=== PATIENT | female | born 1995 | race Caucasian/White ===

== ENCOUNTER 2023-06-03 08:00 | Outpatient (CLI) | payer OTHER ==
[2023-06-03 16:26] LABS: BILIRUBIN,URINE NEGATIVE (NEGATIVE); GLUCOSE, URINE (UA) NEGATIVE (NEGATIVE); KETONES,URINE (UA) NEGATIVE (NEGATIVE); LEUKOCYTE ESTERASE, URINE NEGATIVE (NEGATIVE); NITRITE,URINE NEGATIVE (NEGATIVE); OCCULT BLOOD,URINE NEGATIVE (NEGATIVE); PROTEIN,URINE NEGATIVE (NEGATIVE); UROBILINOGEN,URINE 0.2 (NORMAL) E.U./dL (NORMAL)
[2023-06-03 16:31] LABS: CLARITY,URINE CLOUDY (CLEAR)
[2023-06-03 17:41] LABS: RBC,URINE None Seen /HPF (0-5); WBC,URINE 0-3 /HPF (0-5)
[2023-06-03 17:42] LABS: AMORPHOUS SEDIMENT,UR Marked /LPF; BACTERIA,URINE Moderate /HPF (None Seen); SQUAMOUS EPITHELIAL CELL,UR MOD Squamous (<= Few)
== END 2023-06-03 23:56 | disposition home or self-care (01) ==
LOC: LAB.WC 08:00
PROVIDERS: ATTEND Obstetrics & Gynecology
DX: Z34.90 Encounter for supervision of normal pregnancy, unspecified, unspecified trimester (principal)
CPT/HCPCS: 81001; 87086

== ENCOUNTER 2023-06-13 13:35 | Outpatient (CLI) | payer OTHER ==
[2023-06-13 14:01] LABS: BASOPHILS % (AUTO) 0.5 %; EOSINOPHILS # (AUTO) 0.1 10^3/uL (0.0-0.7); EOSINOPHILS % (AUTO) 0.8 %; HCT - HEMATOCRIT 36.5 % (37.0-47.0); HGB - HEMOGLOBIN 12.4 g/dL (12.0-16.0); LYMPHOCYTES # (AUTO) 2.2 10^3/uL (1.5-3.5); LYMPHOCYTES % (AUTO) 34.6 %; MEAN CORPUSCULAR HEMOGLOBIN 30.4 pg (27.0-31.0); MEAN CORPUSCULAR VOLUME 89.5 fL (81.0-99.0); MEAN PLATELET VOLUME 10.1 fL (7.9-10.8); MONOCYTES # (AUTO) 0.4 10^3/uL (0.0-1.0); NEUTROPHILS # (AUTO) 3.7 10^3/uL (1.5-6.6); NEUTROPHILS % (AUTO) 57.8 %; PLT - PLATELET COUNT 258 10^3/uL (130-450); RED BLOOD COUNT 4.08 10^6/uL (4.20-5.40); RED CELL DISTRIBUTION WIDTH 12.8 % (12.0-15.0); WHITE BLOOD COUNT 6.4 x10^3/uL (4.8-10.8)
[2023-06-14 07:09] LABS: HCV AB Non Reactive (Non Reactive)
[2023-06-14 08:09] LABS: HBsAG SCREEN Negative (Negative); RPR Non Reactive (Non Reactive)
[2023-06-14 09:09] LABS: HIV SCREEN 4TH GENERATION Non Reactive (Non Reactive); VARICELLA-ZOSTER AB IGG <135 index (Immune >165)
== END 2023-06-13 13:36 | disposition home or self-care (01) ==
LOC: LAB 13:35
PROVIDERS: ATTEND Obstetrics & Gynecology
DX: Z34.90 Encounter for supervision of normal pregnancy, unspecified, unspecified trimester (principal)
CPT/HCPCS: 36415; 85025; 86592; 86762; 86787; 86803; 86850; 86900; 86901; 87340; 87389

== ENCOUNTER 2023-06-20 07:42 | Outpatient (CLI) | payer OTHER ==
--- NOTE | 2023-06-20 17:58 | Ultrasound Report ---
PROCEDURE: OB First Trimester INDICATIONS: POSITIVE TEST OUTSIDE/PRIOR DATING DATA: Last menstrual period (LMP): 03/18/2023. LMP-based estimated date of delivery (CHAVEZ): 12/23/2023. First dating scan (date and location): 06/20/2023. Estimated date of delivery (CHAVEZ) from first dating scan: 12/26/2023. TECHNIQUE: Real-time scanning was performed of the fetus and maternal pelvic organs, with image documentation. COMPARISON: None. FINDINGS: Intrauterine gestational sac present. Embryo: Single live intrauterine is identified with crown-rump length measuring 6.6 cm cor responding to 13 weeks 0 days Heart rate: 150 bpm. Other: No perigestational fluid collection. Measurement variability in dating: +/- 4 weeks by LMP, +/- 7 days by mean sac diameter (use before 6 weeks gestation if crown-rump length not able to be measured), +/- 5 days by crown-rump length (6-12 weeks gestation). Maternal organs: There is appearance of right hydrosalpinx. Focus of decreased echogenicity is presen t within the left ovary measuring 2.5 x 1.8 x 2.6 cm. This could represent a left-sided hydrosalpinx versus cyst. IMPRESSION: Single intraoperative gestational age 30 weeks 0 days. Recommend follow-up imaging for dates and anatomy at 20-22 weeks. Right-sided and potential left-sided hydrosalpinx. Further evaluation with short-term ultrasound foll ow-up is recommended. Reviewed by: Rubi Brown MD on 06/20/2023 5:56 PM PST Approved by: Rubi Brown MD on 06/20/2023 5:56 PM PST Station ID: [id number]
== END 2023-06-20 07:43 | disposition home or self-care (01) ==
LOC: DI 07:42
PROVIDERS: ATTEND Obstetrics & Gynecology
DX: O23.521 Salpingo-oophoritis in pregnancy, first trimester (principal); Z3A.13 13 weeks gestation of pregnancy

== ENCOUNTER 2023-07-04 15:38 | Outpatient (CLI) | payer OTHER | END 2023-07-04 15:39 | disposition home or self-care (01) | LOC: LAB 15:38 | PROVIDERS: ATTEND Nurse Practitioner | DX: Z36.0 Encounter for antenatal screening for chromosomal anomalies (principal) ==

== ENCOUNTER 2023-07-17 14:03 | Outpatient (CLI) | payer OTHER ==
[2023-07-19 21:16] LABS: AFP MOM 1.26 (.); AFP VALUE 54.2 ng/mL (.); GEST. AGE ON COLLECTION DATE 17.3 weeks (.); INSULIN DEP DIABETES No (.); MATERNAL AGE AT EDD 29.7 yr (.); MULTIPLE GESTATION No (.); OPEN SPINA BIFIDA RISK 1 IN 5411 (.); RACE Caucasian (.); RESULTS Report (.); TEST RESULTS *Screen Negative* (.); WEIGHT 135 lbs (.)
== END 2023-07-17 14:04 | disposition home or self-care (01) ==
LOC: LAB 14:03
PROVIDERS: ATTEND Obstetrics & Gynecology
DX: Z36.0 Encounter for antenatal screening for chromosomal anomalies (principal)
CPT/HCPCS: 36415; 82105

== ENCOUNTER 2023-08-11 12:39 | Outpatient (CLI) | payer OTHER ==
--- NOTE | 2023-08-11 16:30 | Ultrasound Report ---
PROCEDURE: OB 14+ Weeks INDICATIONS: SUPERVISION OF OUTSIDE/PRIOR DATING DATA: Last menstrual period (LMP): 03/18/2023. LMP-based estimated date of delivery (CHAVEZ): 12/23/2023. First dating scan (date and location): 06/20/2023. Estimated date of delivery (CHAVEZ) from first dating scan: 12/26/2023. The below data below was generated using the ultrasound CHAVEZ of 12/26/2023 TECHNIQUE: Real-time scanning was performed of the fetus, with image documentation and biometric measurements. Endovaginal scanning: Not performed. COMPARISON: 07/02/2023 FINDINGS: General: A single living intrauterine gestation is present. Presentation: Breech Placenta: Placental position is anterior, without previa. Amniotic fluid index: 13.7 cm, deepest pocket is 4.1 cm, normal for gestational age. heart rate: 158 beats per minute. Maternal cervical canal: Closed and 4.8 cm long; normal length is 2.5 cm or more. biometrics: Biparietal diameter: 5.0 cm, 21 weeks 0 days, 57th percentile Head circumference: 18.1 cm, 20 weeks 4 days, 26th percentile Abdominal circumference: 15.2 cm, 20 weeks 3 days, 28th percentile Femur length: 3.3 cm, 20 weeks 2 days, 21st percentile Estimated gestational age from initial scan: 20 weeks 6 days Composite gestational age from present scan: 20 weeks 4 days Estimated weight and percentile: 349 g, 21st percentile Measurement variability for biometric dating: +/- 10 days from 12-20 weeks gestation, +/- 2 weeks fro m 20-30 weeks gestation, +/- 3 weeks for 30 weeks gestation or later. Anatomic survey: Neuro: Ventricles are non-dilated at less than 10 mm. Cisterna magna is normal at 3-11 mm. Cerebel lum is normal in size and morphology. Nuchal skin fold: Normal at less than 6 mm between 14-20 weeks gestational age. Face: Facial features were not well seen. Spine: No evidence for spina bifida. Heart: 4-chambered heart is present. The outflow tracts were not well seen due to position. Diaphragm: Diaphragm is intact. Stomach: Left-sided stomach is present. Kidneys: No hydronephrosis. Normal is less than 5 mm in 2nd trimester, less than 7 mm in 3rd trimester. Cord: 3-vessel cord has orthotopic insertion. Bladder: Normal in size. Extremities: Extremities were not evaluated. There is a hyperechoic mass within the left ovary, presumably a dermoid. The right adnexa displays an avascular tubular cystic structure without internal echoes adjacent to the ovaries suggestive of a h ydrosalpinx. This was seen previously. IMPRESSION: 1. Living intrauterine with growth as expected. Estimated weight at the 21st percenti le. 2. There is partial completion of anatomic survey. Facial features, cardiac outflow tracts, and extre mities were not well seen. Recommend short-term follow-up. 3. Right hydrosalpinx again noted. 4. 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 Reviewed by: Loyda Jarvis MD on 08/11/2023 4:29 PM PST Approved by: Loyda Jarvis MD on 08/11/2023 4:29 PM PST Station ID: [id number]
== END 2023-08-11 12:40 | disposition home or self-care (01) ==
LOC: DI 12:39
PROVIDERS: ATTEND Obstetrics & Gynecology
DX: O23.52 Salpingo-oophoritis in pregnancy (principal); Z3A.20 20 weeks gestation of pregnancy

== ENCOUNTER 2023-08-27 15:02 | Outpatient (CLI) | payer OTHER ==
--- NOTE | 2023-08-27 17:01 | Ultrasound Report ---
PROCEDURE: OB Follow up INDICATIONS: SUPERVISON OF OUTSIDE/PRIOR DATING DATA: Last menstrual period (LMP): 03/18/2023. LMP-based estimated date of delivery (CHAVEZ): 12/23/2023. First dating scan (date and location): 06/20/2023. Estimated date of delivery (CHAVEZ) from first dating scan: 12/26/2023. The below data below was generated using the ultrasound CHAVEZ of 12/26/2023 TECHNIQUE: Real-time scanning was performed of the fetus, with image documentation. Endovaginal scanning: Not performed. COMPARISON: OB ultrasound 08/11/2023 FINDINGS: General: A single living intrauterine gestation is present. Presentation: Vertex Placenta: Placental position is anterior, without previa. Amniotic fluid index: 10.7 cm, within normal limits for gestational age. heart rate: 164 beats per minute. Maternal cervical canal: 3.7 cm long; normal length is 2.5 cm or more. Estimated gestational age from initial scan: 22 weeks 5 days Other: Normal appearance of the nose and lips, right and left ventricular outflow tracts, and extremities. Right renal pelvis measures 5.5 mm in anterior-posterior dimension. Left renal pelvis is within normal limits. Maternal left ovary not visualized. Tubular anechoic cystic structure again se en on the maternal right adnexa. IMPRESSION: 1.Single live intrauterine . 2. right renal pelviectasis. Recommend third trimester follow-up ultrasound. 3.Otherwise normal completion anatomic survey. 4.Stable maternal right hydrosalpinx. Left ovary not visualized. Reviewed by: Chalo Shah MD on 08/27/2023 4:59 PM PST Approved by: Chalo Shah MD on 08/27/2023 4:59 PM PST Station ID: [id number]
== END 2023-08-27 15:03 | disposition home or self-care (01) ==
LOC: DI 15:02
PROVIDERS: ATTEND Obstetrics & Gynecology
DX: O35.EXX0 Maternal care for other (suspected) fetal abnormality and damage, fetal genitourinary anomalies, not applicable or unspecified (principal); Z3A.22 22 weeks gestation of pregnancy

== ENCOUNTER 2023-09-15 11:19 | Outpatient (CLI) | payer OTHER ==
[2023-09-15 12:44] LABS: HCT - HEMATOCRIT 33.6 % (37.0-47.0); HGB - HEMOGLOBIN 11.6 g/dL (12.0-16.0); MEAN CORPUSCULAR HEMOGLOBIN 31.3 pg (27.0-31.0); MEAN CORPUSCULAR HGB CONC 34.5 g/dL (32.0-36.0); MEAN CORPUSCULAR VOLUME 90.6 fL (81.0-99.0); MEAN PLATELET VOLUME 10.1 fL (7.9-10.8); RED BLOOD COUNT 3.71 10^6/uL (4.20-5.40); RED CELL DISTRIBUTION WIDTH 12.6 % (12.0-15.0); WHITE BLOOD COUNT 8.4 x10^3/uL (4.8-10.8)
== END 2023-09-15 11:20 | disposition home or self-care (01) ==
LOC: LAB 11:19
PROVIDERS: ATTEND Nurse Practitioner Obstetrics & Gynecology
DX: Z36.9 Encounter for antenatal screening, unspecified (principal)
CPT/HCPCS: 36415; 82950; 85027

== ENCOUNTER 2023-11-06 15:57 | Outpatient (CLI) | payer OTHER ==
--- NOTE | 2023-11-06 17:19 | Ultrasound Report ---
PROCEDURE: OB Follow up INDICATIONS: PELVIECTASIS OUTSIDE/PRIOR DATING DATA: Last menstrual period (LMP): 03/18/2023. LMP-based estimated date of delivery (CHAVEZ): 12/23/2023. First dating scan (date and location): 06/20/2023, Dr. Sexton. Estimated date of delivery (CHAVEZ) from first dating scan: 06/20/2023. TECHNIQUE: Real-time scanning was performed of the fetus, with image documentation and biometric measurements. Endovaginal scanning: Not performed. COMPARISON: OB ultrasound dated 08/27/2023, 08/11/2023 FINDINGS: General: A single living intrauterine gestation is present. Presentation: Cephalic Placenta: Placental position is anterior, without previa. Amniotic fluid index: 12.8 cm, within normal limits for gestational age. heart rate: 150 beats per minute. Maternal cervical canal: 4.3 cm long; normal length is 2.5 cm or more. Estimated gestational age from initial scan: 33 weeks, 2 days Composite gestational age from present scan: Estimated weight and percentile: Measurement variability in biometric dating: +/- 10 days from 12-20 weeks gestation, +/- 2 weeks from 20-30 weeks gestation, +/- 3 weeks at 30 weeks gestation or more. Other: An echogenic mass is redemonstrated in the left ovary suggesting the presence of an ovarian de rmoid which measures 1.6 x 1.8 x 1.9 cm. The right renal pelvis measures 8 mm in diameter. IMPRESSION: 1. ALISA within normal limits. 2. Right pelviectasis. Continued sonographic surveillance recommended. Reviewed by: Batool Johnson MD on 11/06/2023 5:18 PM PDT Approved by: Batool Johnson MD on 11/06/2023 5:18 PM PDT Station ID: [id number]
== END 2023-11-06 15:58 | disposition home or self-care (01) ==
LOC: DI 15:57
PROVIDERS: ATTEND Nurse Practitioner Obstetrics & Gynecology
DX: O35.8XX0 Maternal care for other (suspected) fetal abnormality and damage, not applicable or unspecified (principal); Z3A.00 Weeks of gestation of pregnancy not specified

== ENCOUNTER 2023-12-21 05:05 | Inpatient (IN) | payer OTHER ==
[2023-12-21] MEDS ORDERED: OXYTOCIN 10 UNIT/ML VIAL IM PRN (05:19)
[2023-12-21] MEDS ORDERED: CARBOPROST TROMETHAMINE 250 MCG/ML VIAL IM PRN (05:19)
[2023-12-21] MEDS ORDERED: fentaNYL 100 MCG/2 ML VIAL IVP PRN (05:19)
[2023-12-21] MEDS ORDERED: miSOPROStoL 200 MCG TABLET PR PRN (05:19)
[2023-12-21] MEDS ORDERED: miSOPROStoL 200 MCG TABLET BC PRN (05:19)
[2023-12-21] MEDS ORDERED: hydrALAZINE INJ 20 MG/ML VIAL IVP PRN ×2 (05:19)
[2023-12-21] MEDS ORDERED: LACTATED RINGERS 1,000 ML IV PRN (05:19)
[2023-12-21] MEDS ORDERED: TERBUTALINE 1 MG/ML VIAL SUBQ PRN (05:19)
[2023-12-21] MEDS ORDERED: METHYLERGONOVINE 0.2 MG/ML VIAL IM PRN (05:19)
[2023-12-21] MEDS ORDERED: lidocaine 1% 20 ML MDV ID PRN (05:19)
[2023-12-21] MEDS ORDERED: SODIUM CHLORIDE FLUSH 0.9% 10 ML SYRINGE IVP PRN (05:19)
[2023-12-21] MEDS ORDERED: NIFEdipine 10 MG CAPSULE PO PRN (05:19)
[2023-12-21] MEDS ORDERED: TRANEXAMIC ACID IN NACL 1,000 MG/100 ML BAG IV PRN (05:19)
[2023-12-21] MEDS ORDERED: LABETALOL 20 MG/4 ML SYRINGE IVP PRN ×3 (05:19)
[2023-12-21 05:40] LABS: BASOPHILS % (AUTO) 0.3 %; EOSINOPHILS % (AUTO) 0.1 %; HCT - HEMATOCRIT 35.6 % (37.0-47.0); HGB - HEMOGLOBIN 11.5 g/dL (12.0-16.0); LYMPHOCYTES # (AUTO) 1.6 10^3/uL (1.5-3.5); LYMPHOCYTES % (AUTO) 13.5 %; MEAN CORPUSCULAR HEMOGLOBIN 27.7 pg (27.0-31.0); MEAN CORPUSCULAR HGB CONC 32.3 g/dL (32.0-36.0); MEAN CORPUSCULAR VOLUME 85.8 fL (81.0-99.0); MEAN PLATELET VOLUME 11.9 fL (7.9-10.8); MONOCYTES # (AUTO) 0.4 10^3/uL (0.0-1.0); NEUTROPHILS # (AUTO) 9.9 10^3/uL (1.5-6.6); NEUTROPHILS % (AUTO) 82.6 %; PLT - PLATELET COUNT 289 10^3/uL (130-450); RED BLOOD COUNT 4.15 10^6/uL (4.20-5.40); RED CELL DISTRIBUTION WIDTH 13.2 % (12.0-15.0)
[2023-12-21] MEDS: LACTATED RINGERS 1,000 ML IV SCH (05:42)
[2023-12-21] MEDS ORDERED: SODIUM CHLORIDE FLUSH 0.9% 10 ML SYRINGE IVP SCH (06:00)
[2023-12-21] MEDS ORDERED: fentaNYL 100 MCG/2 ML VIAL ONE (06:20)
[2023-12-21] MEDS ORDERED: BUPIVACAINE 0.25% PF 10 ML VIAL ONE (06:21)
[2023-12-21] MEDS ORDERED: fentaNYL 100 MCG/2 ML VIAL IT ONE (06:30)
--- NOTE | 2023-12-21 06:51 | ANESTHESIA ---
Pre-Anesthesia VS, & Labs - Diagnosis Active labor, 10cm dilated - Procedure vaginal delivery - NPO Other (labor) - Is Patient ?: Yes - Lab Results Current Lab Results: Laboratory Tests 12/21/23 05:28: WBC 12.0 H, RBC 4.15 L, Hgb 11.5 L, Hct 35.6 L, MCV 85.8, MCH 27.7, MCHC 32.3, RDW 13.2, Plt Count 289, MPV 11.9 H, Neut # (Auto) 9.9 H, Lymph # (Auto) 1.6, Rich # (Auto) 0.4, Eos # (Auto) 0.0, Baso # (Auto) 0.0, Absolute Nucleated RBC 0.00, Nucleated RBC % 0.0 Lab results reviewed: Yes Fish Bones: 12/21/23 05:28 Home Medications and Allergies Active Medications Carboprost Tromethamine (Carboprost Tromethamine 250 Mcg/Ml Vial) 250 mcg IM .ONCE PRN PRN Reason: Hemorrhage Fentanyl (Fentanyl 100 Mcg/2 Ml Vial) 50 mcg IVP Q1H PRN PRN Reason: Severe Pain (score 7-10) Hydralazine HCl (Hydralazine Inj 20 Mg/Ml Vial) 5 - 10 mg IVP Q20M PRN; Protocol PRN Reason: SBP> or= 160 OR DBP> or= 110 Hydralazine HCl (Hydralazine Inj 20 Mg/Ml Vial) 10 mg IVP .ONCE PRN; Protocol PRN Reason: SBP> or= 160 OR DBP> or= 110 Lactated Ringer's (Lr) 500 mls @ 999 mls/hr IV PRN PRN PRN Reason: Anesthesia Oxytocin/Sodium Chloride (Pitocin/Sodium Chloride) 500 mls @ 999 mls/hr IV PRN PRN; Protocol PRN Reason: POST- HEMORR PREVENTION Last Admin: 12/21/23 06:12 Dose: 999 milliunit/min, 999 mls/hr Tranexamic Acid (Tranexamic 1,000 Mg/100ml-Nacl) 1,000 mg in 100 mls @ 600 mls/hr IV Q30M PRN PRN Reason: EBL >1200mL and within 3hr Lactated Ringer's (Lr) 1,000 mls @ 125 mls/hr IV .Q8H [place] Last Admin: 12/21/23 05:42 Dose: 125 mls/hr Labetalol HCl (Labetalol 20 Mg/4 Ml Syringe) 20 - 80 mg IVP Q10M PRN; Protocol PRN Reason: SBP> or= 160 OR DBP> or= 110 Labetalol HCl (Labetalol 20 Mg/4 Ml Syringe) 20 mg IVP .ONCE PRN; Protocol PRN Reason: SBP> or= 160 OR DBP> or= 110 Labetalol HCl (Labetalol 20 Mg/4 Ml Syringe) 20 - 40 mg IVP Q10M PRN; Protocol PRN Reason: SBP> or= 160 OR DBP> or= 110 Lidocaine HCl (Lidocaine 1% 20 Ml Mdv) 20 ml ID .ONCE PRN PRN Reason: PERINEAL REPAIR Stop: 12/24/23 05:19 Methylergonovine Maleate (Methylergonovine 0.2 Mg/Ml Vial) 0.2 mg IM .ONCE PRN PRN Reason: Hemorrhage Misoprostol (Misoprostol 200 Mcg Tablet) 600 mcg BC .ONCE PRN PRN Reason: Hemorrhage Misoprostol (Misoprostol 200 Mcg Tablet) 800 mcg [place] .ONCE PRN PRN Reason: Hemorrhage Nifedipine (Nifedipine 10 Mg Capsule) 10 - 20 mg PO Q20M PRN; Protocol PRN Reason: SBP> or= 160 OR DBP> or= 110 Oxytocin (Oxytocin 10 Unit/Ml Vial) 10 unit IM .ONCE PRN PRN Reason: Step One if no IV access. Sodium Chloride (Sodium Chloride Flush 0.9% 10 Ml Syringe) 10 ml IVP PRN PRN PRN Reason: NEEDED PER PROVIDER ORDERS Sodium Chloride (Sodium Chloride Flush 0.9% 10 Ml Syringe) 10 ml IVP Q8H [facility] Terbutaline Sulfate (Terbutaline 1 Mg/Ml Vial) 0.25 mg SUBQ .ONCE PRN PRN Reason: Tachystole Allergies/Adverse Reactions: Allergies Allergy/AdvReac Type Severity Reaction Status Date / Time No Known Drug Allergies Allergy Verified 12/21/23 06:50 Anes History & Medical History - Medical History Cardiovascular: reports: None Pulmonary: reports: None Gastrointestinal: reports: None Urinary: reports: None Neuro: reports: None Musculoskeletal: reports: None Endocrine/Autoimmune: reports: None Blood Disorders: reports: None Skin: reports: None Psychosocial: reports: No issues indicated History of Cancer?: No Exam General: Alert, Oriented x3, Cooperative, Severe distress (10/10 pain) Dental: WNL Mouth Openin Fingerbreadth Neck Mobility: Normal Mallampati classification: II Thyromental Distance: 4-6 cm Mental/Cognitive Status: Alert/Oriented X3, Normal for patient Plan Anesthesia Type: Spinal (patient is 10cm dilated and pushing. Will place spinal for quick relief.) Consent for Procedure(s) Verified and Reviewed: Yes Code Status: Attempt Resuscitation ASA classification: 2-Mild systemic disease Is this case an emergency?: No
[2023-12-21] MEDS ORDERED: NALBUPHINE 10 MG/ML AMP IVP PRN (06:52)
[2023-12-21] MEDS ORDERED: ONDANSETRON 4 MG/2 ML VIAL IVP PRN (06:52)
[2023-12-21] MEDS ORDERED: ePHEDrine 50 MG/ML VIAL IVP PRN (06:52)
[2023-12-21] MEDS ORDERED: NALOXONE 0.4 MG/ML VIAL IVP PRN (06:52)
[2023-12-21] MEDS: OXYTOCIN/SODIUM CHLORIDE 500 ML IV PRN (07:20)
[2023-12-21] MEDS ORDERED: HYDROCORTISONE 1% CREAM 28 GM TUBE PR PRN (08:01)
[2023-12-21] MEDS ORDERED: WITCH HAZEL/GLYCERIN 1 PAD TOP PRN (08:01)
--- NOTE | 2023-12-21 08:01 | DELIVERY NOTE ---
Delivery Note - Labor Labor: positive: Spontaneous - Delivery Method Delivery Method: positive: Spontaneous vaginal delivery - Presentation Presentation: positive: Vertex, MARY ANN - left occiput anterior - Nuchal Cord Nuchal Cord: positive: Present, Reduced - Anesthetic Anesthetic Type: - Amniotic Fluid Description Amniotic Fluid Description: positive: Moderate meconium - Laceration Laceration: positive: 1st degree, 2nd degree, Perineal, Vaginal - Suture Suture Size: positive: 3-0 - Delivery Outcome Delivery Outcome: positive: Livebirth - [place] : positive: Placed in direct skin contact with mother, Suctioned, Bulb syringe, Warmed, [place] used [place] sex: positive: Female - Cord Cord: positive: 3 vessels - Placenta Placenta: positive: Intact - Estimated Blood Loss Estimated Blood Loss (in cc): 200
--- NOTE | 2023-12-21 08:36 | DELIVERY NOTE ---
Delivery Note - Labor Labor: positive: Spontaneous - Delivery Method Delivery Method: positive: Spontaneous vaginal delivery - Presentation Presentation: positive: MARY ANN - left occiput anterior - Nuchal Cord Nuchal Cord: positive: Present, Reduced - Anesthetic Anesthetic Type: - Amniotic Fluid Description Amniotic Fluid Description: positive: Moderate meconium - Episiotomy Type Episiotomy Type: positive: None - Laceration Laceration: positive: 1st degree, 2nd degree, Perineal, Vaginal - Suture Suture Type: positive: Vicryl Suture Size: positive: 3-0 - Delivery Outcome Delivery Outcome: positive: Livebirth - : positive: Placed in direct skin contact with mother, Bulb syringe, Stimulated, Warmed, [place] used [place] sex: positive: Female - Cord Cord: positive: 3 vessels - Placenta Placenta: positive: Intact, Spontaneous - Estimated Blood Loss Estimated Blood Loss (in cc): 200 - Post Delivery Events Post Delivery Events: positive: No post delivery events - Delivery Comments (Free Text/Narrative) Delivery Comments (Free Text/Narrative): This 28-year-old, G 1P 0 . @ 39+5 weeks gestation by 13 week ultrasound and sure LMP presented @ 0500 time in active labor in good condition. Cervix was 7cm/intact and Vertex presentation by exam. GBS negative. FHR pattern demonstrated 140 baseline in a category I prior to second stage. Progressed rapidly. Normal labor course. Spinal placed upon maternal request. SROM occurred @ 0540. She then progressed to complete/complete @ 0600and ready to deliver. 0600. : Normal spontaneous vaginal delivery of a viable female (YAMILA) on 12/21/2023 @ 0714 . Nuchal x1, reduced. The was placed on maternal abdomen, stimulated, dried and placed skin to skin. Apgars 8 @ 1 min, and 9 @ 5 minutes. Pitocin administered via IV for hemostasis. The umbilical cord was allowed to stop pulsating at which time it was doubly clamped by delivering provider and cut by FOB. 3VC. Cord blood was obtained. Fundal massage and gently cord traction applied for active management of the third stage, placenta delivered spontaneously and intact @ 0722time. EBL 200. Placenta was WAS NOT sent to pathology. Thirty units of Pitocin were added to the IV fluid and allowed to run freely. Uterine massage was performed until uterus was deemed firm. Inspection of the perineum noted a Second degree perineal laceration and first- degree right vaginal sidewall. This was repaired with a running suture of 3-0 Vicryl, rapide. Upon re-inspection the patient was hemostatic. Uterus again massaged and found to be firm. Needle and sponge counts were correct. Fourth stage: Uterine fundus firm and there is no excessive bleeding. The lacerations were was repaired under the effective spinal anesthesia. local anesthesia and repaired in standards fashion under sterile conditions. Vaginal and rectal examination following the repair was done. Tissues well approximated. /skin to skin contact initiated. Family bonding well. Both mother and baby are in stable condition.
--- NOTE | 2023-12-21 09:10 | HISTORY & PHYSICAL EXAMINATION ---
Admit History - Visit Reason Visit Reason: Contractions, Bloody show - : 1 Parity: 0 Risk/History: positive: None Complications This : positive: None Smoking Status: Never smoker - Mother's Labs Mother's Blood Type: positive: O Mother's RH: positive: Positive GBS: positive: Group B Step Negative Rubella Status: positive: Non-immune - Other Maternal History Other Maternal History: HPI: This 28 yo G1POP 39+5 weeks by sure LMP and confirmed by 13 week ultrasound. She had been luiza since last evening. Intermittent rest but no significant sleep. Contractions continued to stronger and closer together. Upon arrival her cervix was 7cm and intact, and vertex with intact membranes. She spontaneously ruptured her bag of dobson. Upon arrival of CN and [employer] [facility] student, she was complete and ready to push. She started her are with [facility] and transferred to [facility] for the duration of her . Her has remained uncomplicated. No Headaches, visual changes or right upper quadrant abdominal pain. Denies nausea and vomiting. Denies urinary urgency or dysuria. She is well supported by her partner throughout labor. ROS: All other symptoms reviewed and were negative except per HPI. 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 SAB x 0. Last pap 05/2023-WNL, abnormal pap in 2016 that reverted to normal. Denies history of gonorrhea, chlamydia, genital herpes, oral herpes or any other STI. Sexual partner does NOT have HSV (oral or genital). Medical Hx: anxiety/depression Surgical Hx: none Social Hx: Monogamous with male partner Stopped drinking alcohol due to . Denies current use of tobacco, marijuana or other recreational drugs. Reports that she is safe in current relationship. Family Hx: Liver cancer - father, thyroid cancer - father; depression - mother; HTN - mother. Denies family history of congenital anomalies, Cystic Fibrosis or chromosomal abnormalities. Allergies: NKDA Medications: PNV Course: Blood type O+ (antibody negative) Rubella immune, Varicella Immune Hep B neg, Hep C neg HIV non-reactive, RPR non-reactive GCCT negative Genetic screening: [id number] negative, AFP negative FAS: Date WNL Placenta: Anterior w/o previa Cord:3VC ALISA:13.7 EFW:349g 21st%ile facial features, cardiac outflow tracts, and extremities not well seen. Right renal pelviectasis. Stable maternal right hydrosalpinx. glucola: 107 Tdap: given 11/07/23 GBS neg Physical exam: Normocephalic, atraumatic Heart No edema Lungs No respiratory distress Abdomen gravid, soft, nontender. EFW 3300g FHR baseline 140, moderate variability, + accelerations, no significant decelerations. Contractions palpate strong and q 2-4 minutes with soft resting tone SVE 7cm/intact , vertex, membranes intact Bilateral LE's no edema Mood is good. Assessment: 28yo @ weeks gestation by 13 wk U/S Active Labor/Transition FHR Cat I GBS Negative Plan: Admit to [facility] for Expectant management Continuous monitoring or intermittent Jacuzzi PRN. Nitrous oxide PRN. Anticipate a Beautiful . Meds/Allgy - Allergies Allergies/Adverse Reactions: Allergies Allergy/AdvReac Type Severity Reaction Status Date / Time No Known Drug Allergies Allergy Verified 12/21/23 06:50 Plan for Labor - Plan For Labor I expect patient to be DC'd or transferred within 96 hours.: Yes
[2023-12-21] MEDS ORDERED: MEASLES,MUMPS & RUBELLA VACC 0.5 ML VIAL SUBQ ONE (09:13)
[2023-12-21] MEDS: ACETAMINOPHEN 500 MG TABLET PO SCH (10:43)
[2023-12-21] MEDS: IBUPROFEN 600 MG TABLET PO SCH (10:44)
--- NOTE | 2023-12-21 20:08 | PROVIDER PROGRESS NOTE ---
Subjective - Prog Note Date Prog Note Date: 12/21/23 Prog Note Time: 20:06 - Subjective Pt reports feeling: Improved Subjective: Subjective: Patient reports she is doing well. Comfortable WITHOUT narcotic pain management. Pain well controlled Lochia appropriate. Denies heavy bleeding. Ambulating. Tolerating oral intake. Diet: Regular. Voiding without difficulty. Passing flatus. Denies BM. Patient is bonding with baby in room Breast feeding going well. Baby fed well earlier. Now more sleepy. Denies feeling lightheaded, dizzy or excessively fatigued. Objective - Vital Signs/Intake & Output Reviewed Vital Signs: Yes Vital Signs: Vital Signs x48h Temp Pulse Resp BP Pulse Ox 12/21/23 14:00 36.7 C 65 16 122/57 L 100 Intake & Output: Intake & Output 12/18/23 12/19/23 12/20/23 12/21/23 23:59 23:59 23:59 23:59 Intake Total 783 Output Total 1100 Balance -317 - Objective General Appearance: positive: No acute distress Eyes Bilateral: positive: Normal inspection Skin: positive: Color nml Neurologic/Psychiatric: positive: Oriented x3 - Lab Results Fish Bones: 12/21/23 05:28 Other Labs: Lab Results x24hrs 12/21/23 12/21/23 Range/Units 05:49 05:28 WBC 12.0 H (4.8-10.8) x10^3/uL RBC 4.15 L (4.20-5.40) 10^6/uL Hgb 11.5 L (12.0-16.0) g/dL Hct 35.6 L (37.0-47.0) % MCV 85.8 (81.0-99.0) fL MCH 27.7 (27.0-31.0) pg MCHC 32.3 (32.0-36.0) g/dL RDW 13.2 (12.0-15.0) % Plt Count 289 (130-450) 10^3/uL MPV 11.9 H (7.9-10.8) fL Neut # (Auto) 9.9 H (1.5-6.6) 10^3/uL Lymph # (Auto) 1.6 (1.5-3.5) 10^3/uL Richardson # (Auto) 0.4 (0.0-1.0) 10^3/uL Eos # (Auto) 0.0 (0.0-0.7) 10^3/uL Baso # (Auto) 0.0 (0.0-0.1) 10^3/uL Absolute Nucleated RBC 0.00 x10^3/uL Nucleated RBC % 0.0 /100WBC Blood Type O POSITIVE Antibody Screen NEGATIVE - Other Results/Comments Other Results/Comments: Objective General: Alert, oriented, no apparent distress. Cardiovascular: no edema Lungs: No increased work of breathing. Abdomen: Uterus firm. Below umbilicus. No guarding or rebound tenderness. Extremities: No pain on palpation. Distal pulses intact. ABX Reporting Has patient been on IV antibiotics over the past 48 hours?: No Assessment/Plan - Problem List (1) Normal vaginal delivery Impression: Assessment and Plan 28yo s/p on 12/21/23 after normal labor course - Routine care - Anticipate discharge 12/21-12/23/2023 (2) Second degree perineal laceration during delivery, delivered Impression: Mild soreness, no sharp discomfort Managed with comfort measures and IBU/tylenol (3) Exclusive by mother Impression: Breast feeding well, good latch, nipples intact support by RN team Earlier feedings quite successful, baby now more tired. Baby stooling
[2023-12-21] MEDS: DOCUSATE SODIUM 100 MG CAPSULE PO SCH (21:40)
--- NOTE | 2023-12-22 06:09 | PROVIDER PROGRESS NOTE ---
Subjective - Prog Note Date Prog Note Date: 12/22/23 Prog Note Time: 06:07 - Subjective Pt reports feeling: Improved Subjective: Subjective: Patient reports she is doing well. Comfortable WITHOUT narcotic pain managment Lochia appropriate. Denies heavy bleeding. Describes bleeding as "a light period" Ambulating. Tolerating oral intake. Diet: Regular. Voiding without difficulty. Passing flatus. Denies BM. Patient is bonding with baby in room Breast feeding going well. States she would appreciate the assistance of her nursing team for the and care a bit longer. May or may not desire to stay an additional night. Denies feeling lightheaded, dizzy or excessively fatigued. Objective - Vital Signs/Intake & Output Reviewed Vital Signs: Yes Intake & Output: Intake & Output 12/19/23 12/20/23 12/21/23 12/22/23 23:59 23:59 23:59 23:59 Intake Total 1283 300 Output Total 1100 Balance 183 300 - Objective General Appearance: positive: No acute distress Eyes Bilateral: positive: Normal inspection - Lab Results Fish Bones: 12/21/23 05:28 Other Labs: Lab Results x24hrs 12/21/23 Range/Units 05:49 Blood Type O POSITIVE Antibody Screen NEGATIVE - Other Results/Comments Other Results/Comments: General: Alert, oriented, no apparent distress. Cardiovascular: Regular rate. Regular rhythm. Lungs: No increased work of breathing. Abdomen: Uterus firm. Below umbilicus. No guarding or rebound tenderness. Extremities: No pain on palpation. Distal pulses intact. ABX Reporting Has patient been on IV antibiotics over the past 48 hours?: No Assessment/Plan - Problem List (1) Normal vaginal delivery Impression: Assessment and Plan day 1. 28yo s/p 12/22/23 following spontaneous labor onset. - Routine , postoperative care - Anticipate discharge tomorrow (2) Second degree perineal laceration during delivery, delivered Impression: No significant pain. Used perineal ice packs the first 12 hours after delivery. Now tolerating discomfort well. Continues to use kellen wash bottle post void. (3) Exclusive by mother Impression: Doing well. Has been appreciating assistance by RN team. Continued reassurance and support PRN.
[2023-12-22 06:10] VITALS: O2SAT 98
--- NOTE | 2023-12-23 08:47 | Discharge Plan ---
Discharge Plan Problem Reviewed?: Yes Disposition: Home, Self Care Diet: Regular Activity Restrictions: No Restrictions No Smoking: If you smoke, Please STOP! Call for help. Follow-up with: Darlyn Sexton CNM, [place] [Provider Admit Priv/Credential] -
--- NOTE | 2023-12-23 08:53 | DISCHARGE SUMMARY ---
Discharge Summary Admit Date: 12/21/23 Discharge Date: 12/23/23 Discharging Provider: GURDEEP Sexton Code Status: Attempt Resuscitation Condition at Discharge: Good Discharge Disposition: 01 Home, Self Care - DIAGNOSES Admission Diagnoses: Active Labor Discharge Diagnoses with Status of Each Condition: S/P vaginal delivery 12/21/2023 - [facility] History of Present Illness: Date of Admission 12/21/2023 Date of Discharge 12/23/2023 Diagnosis on admission: 1. 28yo Active labor 2. RH + 3. GBS negative Diagnosis on Discharge 1. S/P vaginal delivery on 12/21/2023 2. Second degree perineal laceration with repair 3. Exclusive Brief History: [facility] who [facility] on [facility]23 with complaints of contractions. She was found to be 7cm and luiza regularity and quickly progressed to complete. Labor progressed naturally and she utilized nitrous oxide and spinal anesthesia for pain management. She spontaneously delivered a viable female infant apgars 8 and 9 at 1 and 5 minutes respectively. EBL 200 ml. Second degree perineal laceration and 1st degree vaginal side wall laceration with repair. She has been doing well in her course. She is ambulating and tolerating a regular diet. She is urinating without difficulty and her lochia is normal. Her pain is well controlled without narcotic management. She will be discharged to home today on day 2 with recommendations for OTC IBU and colace prn. She [facility]. She has been given precautions to call if she has any worsening fevers, chills, abdominal pain, increasing bleeding, or foul smelling vaginal lochia. ALLYSON Glover Student Nurse senior research associate. - ALLERGIES Allergies/Adverse Reactions: Allergies Allergy/AdvReac Type Severity Reaction Status Date / Time No Known Drug Allergies Allergy Verified 12/21/23 06:50 - MEDICATIONS Home Medications: Ambulatory Orders Medication Instructions Recorded Confirmed Pnv No.95/Ferrous Fum/Folic AC 1 each PO DAILY 12/21/23 12/21/23 [ [place]] - PHYSICAL EXAM AT DISCHARGE General Appearance: positive: No acute distress Eyes Bilateral: positive: Normal inspection ENT: positive: No signs of dehydration Neck: positive: Nml inspection Cardiovascular: positive: Regular rate & rhythm Abdomen: positive: Non-tender, No distention Skin: positive: Color nml Extremities: positive: Non-tender Neurologic/Psychiatric: positive: Oriented x3 - LABS Result Diagrams: 12/21/23 05:28 - QUALITY (Female Hip Fx Only) Was patient sent home on osteoporosis medication?: No - FOLLOW UP Follow Up: 1 week telehealth appointment with GURDEEP Damon - TIME SPENT Time Spent in Discharge (Minutes): 20
[2023-12-23 10:30] VITALS: BP 124/71
[2023-12-23] MEDS: MEASLES,MUMPS & RUBELLA VACC 0.5 ML VIAL SUBQ ONE (11:31)
[2023-12-23] MEDS: VARICELLA VACCINE LIVE/PF 1,350 UNIT/0.5 ML VIAL SUBQ ONE (11:37)
--- NOTE | 2023-12-23 12:12 | Labor Flowsheet ---
Labor Flowsheet Datetime Report Generated by CPN: 12/23/2023 12:12 Datetime: 12/23/2023 10:18 VITAL SIGNS NBP Sys/Addie/Mean (mmHg): 124 : 71 : 84 Pulse: 73 LaborFlag: Labor Datetime: 12/23/2023 00:59 SpO2 (%): 95 Datetime: 12/21/2023 11:29 Membranes Ruptured Date/Time: 12/21/2023 05:40 Membranes Rupture Method: Spontaneous Amniotic Fluid Color: Light Meconium Amniotic Fluid Amount: Moderate Amniotic Fluid Odor: Normal Datetime: 12/21/2023 07:22 STAGE 2 Stage 2 Comments: placenta delivered Datetime: 12/21/2023 07:20 MEDICATIONS Medication Comments: start PPPitocin Datetime: 12/21/2023 07:00 UTERINE ACTIVITY Monitor Mode: External Frequency (min): 2-4min Quality: Moderate Duration (sec): 60-80 Pattern: Normal: <= 5 Contractions in 10 Minutes Resting Tone (Palpate): Relaxed ASSESSMENT A Monitor Mode: External US FHR Baseline Rate : 125 FHR Baseline Changes: No Baseline Change Variability: Moderate 6-25 bpm Accelerations: 15X15 Decelerations: Late Category: Category II PATIENT CARE Oxygen Method: Room Air Datetime: 12/21/2023 06:22 ANESTHESIA Epidural Positioning: Side Lying Anesthesia Comments: gurmeet test inspection engineer at bedside Datetime: 12/21/2023 06:00 Monitor Interventions for UA: [place] Adjusted Datetime: 12/21/2023 05:55 COMMUNICATION Communication Comments: tracing maternal HR Datetime: 12/21/2023 05:11 VAGINAL EXAM Dilatation (cm): 7.0 Effacement (%): 90 Station: -2 Exam by: [email or web address] Vaginal Bleeding: Normal Show Cervix, Consistency: Soft Cervix, Position: Anterior
== END 2023-12-23 12:10 | disposition home or self-care (01) | DRG 807 ==
LOC: WFO 05:05 → FBP 05:06 → WFO 05:10 → FBP 05:10 → WFO 05:18 → FBP 05:19 → UNDOFXCLIACCOM 05:19
PROVIDERS: ADMIT Nurse Practitioner Obstetrics & Gynecology; ATTEND Nurse Practitioner Obstetrics & Gynecology
PROC: 10E0XZZ Delivery of Products of Conception, External Approach (ICD-10-PCS; principal; 2023-12-21)
PROC: 0KQM0ZZ Repair Perineum Muscle, Open Approach (ICD-10-PCS; 2023-12-21)
PROC: 0UQGXZZ Repair Vagina, External Approach (ICD-10-PCS; 2023-12-21)
DX: O70.1 Second degree perineal laceration during delivery (principal); Z37.0 Single live birth; Z3A.39 39 weeks gestation of pregnancy; O77.0 Labor and delivery complicated by meconium in amniotic fluid
CPT/HCPCS: 59409; 85025; 86850; 86900; 86901; 90716; A9270; J7120; 84443